=== PATIENT | male | born 1965 | race Caucasian/White ===

== ENCOUNTER 2022-08-25 07:55 | Day surgery (SDC) | payer OTHER, SELFPAY ==
--- NOTE | 2022-08-24 21:46 | W.PM.HP.N ---
Date of service: 08/25/22 Time of Service: 09:01 Assessment and Plan Assessment and plan (1) Screening for colon cancer: Status: Acute Assessment and plan: proceed with screening colonoscopy History of Present Illness History of Present Illness Chief Complaint: Screening colonoscopy Narrative: Assessment & Plan (1) Encounter for screening colonoscopy: Plan Plan: Colonoscopy w/ general & natural airway. The?patient will be scheduled by my office. If there is any concerns of COVID the procedure will be delayed The pt understands that they need to do a bowel prep and the importance of hydration during this.? The patient understands there is a theoretical risk of renal failure.? For healthy patients we use Gatorade/Miralax Prep.? ?For anyone with renal concerns- GoLytely will be used. Plavix and coumadin will need to be held except in unusual circumstances. ? Patients in A. Fib do not need to be bridged with Lovenox or on CVA prophylaxis.? A baby ASA can be continued but full dose ASA needs to be stopped for 10 days prior to the procedure. A complete H & P is required within 30 days of the procedure.? GETA w/natural airway is used for the colonoscopy.? Colonoscopy does not require antibiotics prophylaxis. Continue to take AntiVirals w/ out interruptions? Thank you for allowing me to participate in the care of this Patient.? A copy of the Endoscopy report will be forwarded to your office. Informed consent is obtained for the procedural (explained in simple layman's terms that?the pt and/or family could understand) explaining risks vs benefits and alternatives to the procedure and consequences if we do not do the procedure and need/rational for the procedure. Risks include but are not limited to: bleeding, infection, perforation of colon.? This would necessitate emergency surgery to repair the damage w/ possible ostomy; and other associated complications w/ the required surgery. ? Also complications of anesthesia including aspiration, MA/CVA/. I discussed with the?patient would they could expect during the procedure, post procedure and recovery time and risks.? The patient understands that they need to have a ride home after the procedure.? The patient was given all this information in writing and expressed understanding. to your office.? If there are any questions or concerns please feel free to contact our office.? Patients at highest risk for IE???Prophylaxis is suggested only in the setting of conditions associated with the highest risk of an adverse outcome if IE occurs. These include [[email or web address]]: ?Prosthetic cardiac valve or material ?Presence of cardiac prosthetic valve ?Transcatheter implantation of prosthetic valves ?Cardiac valve repair with devices, including annuloplasty, rings, or clips ?Left ventricular assist devices or implantable heart ?Previous, relapse, or recurrent IE ?Congenital heart disease ?Unrepaired cyanotic congenital heart disease, including palliative shunts and conduits ?Completely repaired congenital heart defect with prosthetic material or device, whether placed by surgery or by transcatheter during the first six months after the procedure ?Repaired congenital heart disease with residual defects at the site of or adjacent to the site of a prosthetic patch or prosthetic device ?Surgical or transcatheter pulmonary artery valve or conduit placement such as Isabel valve and Contegra conduit ?Cardiac transplant recipients who develop cardiac valvulopathy ? ? ? Situation?Agent? Adult?? Dosing? Child Dosing?Adults?Children?Oral?Amoxicillin? 2g po? 50mg/Kg? po?2 g?50 mg/kg?Unable to take oral medication?Ampicillin? 2g IMor IV? 50mg/kg IM or IV?2 g IM or IV?50 mg/kg IM or IV?OR?Cefazolin or ceftriaxone? 1g IM or IV? 50mg/kg IM or IV?1 g IM or IV?50 mg/kg IM or IV?Allergic to penicillin or ampicillin?oral?Cephalexin?2g po? 15mg/kg?2 g?50 mg/kg?OR?Azithromycin or clarithromycin? 500mg?500 mg?15 mg/kg?OR?Doxycycline? 100mg?100 mg?<45 ? kg, 2.2 mg/kg???>45 kg, 100 mg?Allergic to penicillin or ampicillin and unable to take ? oral medication?Cefazolin or?ceftriaxone? 1g IM or?IV?1 g IM or IV?50 mg/kg IM or IV?? ? Antibiotic regimens for prevention of endocarditis prior to dental procedures*Clindamycin is no longer recommended for antibiotic prophylaxis prior to dental ?New polyethylene glycol 3350 ?? take per colonoscopy instructions 238 grams? PO ONCE 238 grams 0RF colonoscopy prep ? ? bisacodyl (Dulcolax (bisacodyl)) ?? take per colonoscopy instructions 5 mg? PO ONCE 4 tabs 0RF colonscopy bowel prep ? ? Plan Detail Instructions: ? ? Colonoscopy (AC) Total time on date of encounter, (wgag-[id number] and non fluc-kt-hhgn) (minutes): 25 Time was spent: reviewing prior notes and diagnostics, providing direct patient care, ordering diagnostics and/or referrals, documenting today's visit, updating the EMR, coordinating care and other HPI Pt here for colonoscopy states he has them every 5 years because he is HIV positive and sexually active. Currently patient is not having any rectal concerns. Pt seen at the request of PCP regarding colon cancer screening. Pt? had a colon cancer screening before.? Denies problems with constipation, diarrhea.? No pain or difficulty with bowel movements.? Denies rectal bleeding.? There is family history of any colon cancer.? Pt has not had any weight loss.? Their appetite is good.? No heart, lung, or kidney problems. No heartburn or indigestion. No prior colo-rectal surgery.? ? No problems with anesthesia in the past.? ? No HPV infections that he is aware- although it is noted in his problem list. Sustiva adn Combivir Dr. Schultz at [facility] ID.? Stable on medications.? Last CE was at [place] 6 yrs ago.? Normal per pt.? ? ?Patient has a history of: DM:? no CVA/MA:? No CPAP use:? no ? Covid- December.? No long-term sequelae Blood thinners:? no Kidney disease:? daily THC use.? no tobacco HIV+? well controlled and normal CD4 counts Patient has had no changes in his medical status or his medications since I saw him last. He has not been in the emergency department for any reason. Patient is doing okay today. He is not having any chest pain or shortness of any of breath. He is not having any fevers or upper respiratory tract symptoms. He did complete prep. The resulting effluent is a clear yellow. He is not having any abdominal pain or nausea. All questions are answered to his satisfaction and he is stable to proceed with colonoscopy today. Review of Systems All systems reviewed & are unremarkable except as noted in HPI and below PFSH All Active Problems Vitamin D deficiency (Acute) Screening for colon cancer (Acute) Medical History Acquired immune deficiency syndrome Family history of colon cancer Maternal Uncle age 54 Hemangioma of liver History of seizures Per pt. states he has not had a seizure since he was 12 years old, stated it was fever related. HIV positive Human papilloma virus Hypercholesterolemia Hypertriglyceridemia Lyme disease (~2014) Pityriasis rosea Plantar fasciitis Pseudogout Pseudogout Surgical History Colonoscopy - MAC (02/12/17) Social History Smoking/Tobacco Use Status: Former Tobacco Use Quit Date: 11/12/15 Smoking risk assessment performed?: Yes Alcohol Intake: current Alcohol Intake frequency: holidays/special occasions only Drug use: Daily Substance use type: marijuana Details: Pt states 3+ joints qd Do you feel safe at home: Yes Do you feel safe in your relationship?: Yes Meds Allergies and Home Medications Allergies Allergy/AdvReac Type Severity Reaction Status Date / Time No Known Allergies Allergy Unverified 08/24/22 08:14 Home Medications Medication Instructions Recorded Confirmed Type atorvastatin 20 mg tablet (Lipitor) 20 mg PO DAILY 12/23/21 08/25/22 History cholecalciferol (vitamin D3) 50 50 mcg PO DAILY 12/23/21 08/25/22 History mcg (2,000 unit) capsule efavirenz 50 mg capsule (Sustiva) 50 mg PO DAILY 12/23/21 08/25/22 History lamivudine 150 mg-zidovudine 300 1 tab PO BID 12/23/21 08/25/22 History mg tablet (Combivir) Exam Narrative Exam Narrative: PHYSICAL EXAM GENERAL APPEARANCE: Alert, healthy appearance, oriented, in no acute distress SKIN: No rashes.? No breakdown HYDRATION: Well hydrated HEAD, EYES, EARS, NECK, THROAT: Head is normocephalic, pupils equal, round, reactive to light and accommodation, ocular movement intact, sclera clear and no jaundice. ?Dentition intact. No sore throat.? No jaw pain. LUNGS: normal respiration/nl chest excursion. ?Clear to auscultation B/l no R/R/W ?HEART: Regular rate and rhythm, EXTREMITY: No edema or cyanosis? no leg pain, redness, swelling.? ABDOMEN: non tender to palpation, no masses or distention, no hernias. Normal bowel sounds NEURO: no focal neuro deficits. Const General: cooperative, healthy appearing and comfortable Orientation: awake and oriented x3 Eyes General: appearance normal, both eyes and all related structures Conjunctivae: conjunctivae normal Sclera: sclerae normal Resp Effort & Inspection: normal respiratory effort and able to speak in complete sentences Auscultation: clear to auscultation bilaterally Cardio Jugular venous pressure: no JVD Rate: regular rate Heart Sounds: S1 normal and S2 normal GI Inspection: non-distended Palpation: soft, no guarding, no hernias and nontender Auscultation: normal bowel sounds Skin General skin exam: normal turgor Neuro General: patient alert, patient awake and patient oriented x3 Cognition: normal cognition Extrem Right lower extremity: no edema Left lower extremity: no edema
--- NOTE | 2022-08-24 21:52 | COLE_ITS ---
Colonoscopy Report Pre-op diagnosis general: +family hx of CRC Surgeon: Tiffanie Boggs Anesthesia Type: General:No Airway Complications: None Disposition: same day Prep: Miralax/Dulcolax Procedure Description: After informed consent was obtained the patient was taken to the procedure room and placed in a left decubitous position. Monitors were applied and a time out was done. The patients name, date of , procedure, allergies to medications and metal in their body was reviewed. The patient was then sedated. Once sedated and comfortable a rectal exam was done. External exam was normal. Internal exam revealed a normal sphincter tone and no palpable masses. The prostate []. The scope was then introduced and retrofelexed. [] internal hemorrhoids were identified. The scope was then advanced to the cecum [] difficulty. The TI and appendiceal orifice were identified. The prep was []. The scope was then slowly retracted over [] minutes back into the rectum. Polyps were removed at []. The scope was removed and the patient was woken up and taken back to Same day surgery in stable condition. The patient tolerated the procedure well and there were no immediate complicat ions. Follow up: The patient should follow up in [] years unless they develop changes in bowel habits or other new gastrointestinal complaints.
--- NOTE | 2022-08-24 21:53 | PDOC.DSDIS_ITS ---
Discharge Plan Disposition Patient Disposition: HOME Condition: Good Discharge Details Attending Provider: Tiffanie Boggs Primary Care Provider: Radha Perales Home Meds and New Rx's Prescriptions: Continued cholecalciferol (vitamin D3) 50 mcg (2,000 unit) capsule 50 mcg PO DAILY atorvastatin [Lipitor] 20 mg tablet 20 mg PO DAILY lamivudine-zidovudine [Combivir] 150-300 mg tablet 1 tab PO BID efavirenz [Sustiva] 50 mg capsule 50 mg PO DAILY Discontinued polyethylene glycol 3350 17 gram/dose powder 238 g PO ONCE Qty: 238 0RF Rx Instructions: take per colonoscopy instructions bisacodyl [Dulcolax (bisacodyl)] 5 mg tablet,delayed release (DR/EC) 5 mg PO ONCE Qty: 4 0RF Rx Instructions: take per colonoscopy instructions Discharge Instructions Additional Instructions: DSU Colonoscopy Post- Op Instructions Instructions for Everyone who is given Anesthesia: For your safety, please do the following for the next twenty-four (24) hours: *Do Not operate a motor vehicle (car, truck, motorcycle, etc.) *Do Not drink alcoholic beverages or use any recreational drugs for the first 24 hours or while taking pain medications. The medications in your body may have a reaction that can be dangerous. *Do Not make any important decisions or sign any important papers. Findings: Follow up: 1. No lifting over 20 pounds or strenuous activity for the first 24 hours after your procedure. After 24 hours there are no restrictions on your activity but you may feel fatigued for a few days. 2. After you arrive home you may have a light meal and return to your normal diet as you can tolerate it without feeling sick to your stomach. 3. You may have a bloated, gaseous feeling in your belly (abdomen) after a colonoscopy. Passing gas and belching will help. Walking or lying down on your left side with your knees flexed may relieve the discomfort. Call the office at [phone] (Office) or [phone] (Hospital) right away if you notice any of the following: a.Vomiting of blood or ?coffee ground stools?. b.Rectal bleeding 1Tbsp, blood clots or continuous bleeding. c.Severe belly (abdominal) pain. d.A hard distended belly (abdomen) and an inability to pass gas. 4. Please don?t expect to have a normal BM (bowel movement) for 2-3 days after your procedure. 5. If there are questions regarding the findings of your procedure, please contact your doctor 6. If you are unable to contact your doctor with a problem, contact the hospital at [phone]. 7. Continue all your regular medications unless directed otherwise. I understand the above instructions and have no questions. Signature of Patient or Adult Escort Name of Responsible Adult Escort Signature of Nurse Date/Time Activity:: see above Diet:: see above Discharge Orders Discharge Orders: Discharge Order (Routine); Ordered 08/24/22 Ordered By: Tiffanie Boggs DS: Diagnosis Discharge Diagnosis (1) Acquired immune deficiency syndrome: (2) Family history of colon cancer: (3) Hypercholesterolemia: (4) Hypertriglyceridemia: (5) Pseudogout:
--- NOTE | 2022-08-25 06:24 | ANES.PREOP_ITS ---
General Info Date of Service Date Performed: 08/25/22 Height: 5 ft 7 in Weight: 64.864 kg Body Mass Index (BMI): 22.4 Surgical Procedure: Operation Date: 08/25/22 09:05 Proposed Procedure Side Surgeon zohreh Boggs, DO Meds Allergies and Home Medications Allergies Allergy/AdvReac Type Severity Reaction Status Date / Time No Known Allergies Allergy Unverified 08/24/22 08:14 Home Medication Medication Instructions Recorded atorvastatin 20 mg tablet (Lipitor) 20 mg PO DAILY 12/23/21 cholecalciferol (vitamin D3) 50 50 mcg PO DAILY 12/23/21 mcg (2,000 unit) capsule efavirenz 50 mg capsule (Sustiva) 50 mg PO DAILY 12/23/21 lamivudine 150 mg-zidovudine 300 1 tab PO BID 12/23/21 mg tablet (Combivir) Current Visit Medications: Current Medications Generic Name Dose Route Start Last Admin Trade Name Freq PRN Reason Stop Dose Admin Hyoscyamine Sulfate 0.125 mg 08/24/22 21:45 Hyoscyamine 0.125 Mg Sl/Oral/Chew SL DIRECTED PRN Ringer's Solution 1,000 mls @ 80 mls/hr 08/25/22 06:00 IV 08/25/22 23:59 INFUSION [facility] IV Miscellaneous Supplies 1 each 08/25/22 06:00 Iv Access IV 08/25/22 23:59 DIRECTED KATIE Ondansetron HCl 4 mg 08/24/22 21:45 Ondansetron 4 Mg/2 Ml Vial IVP Q4H PRN PRN Nausea / Vomiting Sodium Chloride 0 ml 08/25/22 06:00 Normal Saline Flush 10 Ml Syr IV 08/25/22 23:59 PRN PRN Sodium Chloride 0 ml 08/25/22 06:00 Normal Saline 10 Ml Vial IJ 08/25/22 23:59 DIRECTED PRN Sterile Water 0 ml 08/25/22 06:00 Water,Injection,Sterile 10 Ml Vial IJ 08/25/22 23:59 DIRECTED PRN PFSH Active Problems Active Problems: Problem Status Onset Code Vitamin D deficiency E55.9 Screening for colon cancer Z12.11 Medical History Medical History (Updated 08/25/22 @ 08:03 by Yumiko Bueno RN) Acquired immune deficiency syndrome Family history of colon cancer Maternal Uncle age 54 Hemangioma of liver History of seizures Per pt. states he has not had a seizure since he was 12 years old, stated it was fever related. HIV positive Human papilloma virus Hypercholesterolemia Hypertriglyceridemia Lyme disease (~2014) Pityriasis rosea Plantar fasciitis Pseudogout Pseudogout Surgical History Surgical History Colonoscopy - MAC (02/12/17) Tobacco Smoking/Tobacco Use Status: Former Tobacco Use Alcohol Alcohol Intake: current Alcohol intake frequency: holidays/special occasions only Substance Use Substance use: Daily Substance use type: marijuana Vital Signs and Lab Results Vital Signs Most Recent Vital Signs in EMR: Temp Pulse Resp BP Pulse Ox 36.5 C 70 18 135/87 97 08/25/22 08:07 08/25/22 08:07 08/25/22 08:07 08/25/22 08:07 08/25/22 08:07 Lab Results Blood Type / Crossmatch: No Data to Display Complete Blood Count: No Data to Display Complete Metabolic Panel: No Data to Display Liver Function Panel: No Data to Display Coagulation Panel: No Data to Display Cardiac Panel: No Data to Display Arterial Blood Gas: No Data to Display Venous Blood Gas: No Data to Display Pancreas Panel: No Data to Display Thyroid Panel: No Data to Display Infectious Disease: No Data to Display Blood Cultures: No Data to Display Toxicology Panel: No Data to Display Anesthesia Assessment and Plan Anesthesia History Personal History: No History of Anesthesia Complications Family History: No Family History of Anesthesia Complications Exercise Tolerance Exercise Tolerance: Metabolic Equivalents>4 Cardiac & Pulmonary Exam Cardiac Exam: Normal S1/S2 Heart Sounds Pulmonary Exam: Clear Bilateral Breath Sounds Implantable Cardiac Device Does patient have a Pacemaker or an ICD?: No Airway Exam Known Difficult Airway: No Mallampati Class: 2 Mouth Opening: Normal (> 3cm) Thyromental Distance: Greater than 3 cm Neck Range of Motion: Full ROM Neck Circumference: Normal Teeth Condition: Normal Dentition ASA Classification ASA Score: ASA 2 Emergency Case?: No NPO Status NPO Status: NPO Clears >2 hours, Solids >8 hours Anesthesia Plan Resuscitation Status: Full Code Anesthesia Technique: General Anesthesia Airway Planned: Natural Airway Monitors Used: Standard Monitors Preoperative Comments:: 57 yo male with family history of colon CA for colo. Sig PMHx: hep b (), sz as a child, HIV (efavirenz, lamivudine-zidovudine), former smoker, occ EtOH, daily cannabis.
[2022-08-25 08:07] VITALS: BP 135/87; PULSE 70; RESP 18; TEMP 36.5; O2SAT 97
[2022-08-25] MEDS: Lactated Ringers 1,000 ML 80 ML IV (08:32)
[2022-08-25 08:34] VITALS: BMI 22.4
--- NOTE | 2022-08-25 09:03 | PDOC.DSDIS_ITS ---
Discharge Plan Disposition Patient Disposition: HOME Condition: Good Discharge Details Reason For Visit: screening colonoscopy Attending Provider: Ponce Fuentes Primary Care Provider: Radha Perales Home Meds and New Rx's Prescriptions: Continued cholecalciferol (vitamin D3) 50 mcg (2,000 unit) capsule 50 mcg PO DAILY atorvastatin [Lipitor] 20 mg tablet 20 mg PO DAILY lamivudine-zidovudine [Combivir] 150-300 mg tablet 1 tab PO BID efavirenz [Sustiva] 50 mg capsule 50 mg PO DAILY Discontinued polyethylene glycol 3350 17 gram/dose powder 238 g PO ONCE Qty: 238 0RF Rx Instructions: take per colonoscopy instructions bisacodyl [Dulcolax (bisacodyl)] 5 mg tablet,delayed release (DR/EC) 5 mg PO ONCE Qty: 4 0RF Rx Instructions: take per colonoscopy instructions Discharge Instructions Additional Instructions: DSU Colonoscopy Post- Op Instructions Instructions for Everyone who is given Anesthesia: For your safety, please do the following for the next twenty-four (24) hours: *Do Not operate a motor vehicle (car, truck, motorcycle, etc.) *Do Not drink alcoholic beverages or use any recreational drugs for the first 24 hours or while taking pain medications. The medications in your body may have a reaction that can be dangerous. *Do Not make any important decisions or sign any important papers. Findings: Follow up: 1. No lifting over 20 pounds or strenuous activity for the first 24 hours after your procedure. After 24 hours there are no restrictions on your activity but you may feel fatigued for a few days. 2. After you arrive home you may have a light meal and return to your normal di et as you can tolerate it without feeling sick to your stomach. 3. You may have a bloated, gaseous feeling in your belly (abdomen) after a colonoscopy. Passing gas and belching will help. Walking or lying down on your left side with your knees flexed may relieve the discomfort. Call the office at [phone] (Office) or [phone] (Hospital) right away if you notice any of the following: a.Vomiting of blood or ?coffee ground stools?. b.Rectal bleeding 1Tbsp, blood clots or continuous bleeding. c.Severe belly (abdominal) pain. d.A hard distended belly (abdomen) and an inability to pass gas. 4. Please don?t expect to have a normal BM (bowel movement) for 2-3 days after your procedure. 5. If there are questions regarding the findings of your procedure, please contact your doctor 6. If you are unable to contact your doctor with a problem, contact the hospital at [phone]. 7. Continue all your regular medications unless directed otherwise. I understand the above instructions and have no questions. Signature of Patient or Adult Escort Name of Responsible Adult Escort Signature of Nurse Date/Time Activity:: see above Diet:: see above Discharge Orders Discharge Orders: Discharge Order (Routine); Ordered 08/24/22 Ordered By: Tiffanie Boggs DS: Diagnosis Discharge Diagnosis (1) Screening for colon cancer: Status: Acute Asessment and Plan: Diverticulosis -Consume a high-fiber well balanced diet with good hydration Screening colonoscopy was negative for colorectal cancer or polyps -Recommend follow-up in 5 to 10 years
--- NOTE | 2022-08-25 09:04 | W.COLOREPORT ---
Colonoscopy Report Date of procedure: 08/25/22 Pre-op diagnosis general: Screening colonoscopy Post-op diagnosis procedure note: other (Diverticulosis) Procedure: Screening colonoscopy Surgeon: Ponce Fuentes Anesthesia Type: General:No Airway Estimated blood loss (mL): 0 Pathology: none sent Complications: None Disposition: same day Indications: Yaya 57-year-old male here for screening colonoscopy Prep: Miralax/Dulcolax Procedure Start Time: 09:18 Procedure End Time: 09:31 Retraction Time: 10 Procedure Description: After the induction of monitored anesthetic care, and with the patient in left lateral decubitus position, I began by performing an external anorectal exam.? Perineum and skin were normal, as was the anal verge.? There was no evidence of external hemorrhoids.? Next, I performed a digital rectal exam.? I did not appreciate any abnormal findings.? Next, I advanced a colonoscope into the rectal vault.? I performed retroflexion.? I did not see signs of pathologic internal hemorrhoids.? Using insufflation, I then advanced the colonoscope beyond the rectal folds and into the sigmoid colon before advancing towards the cecum.? The quality of the prep was adequate.? The scope was noted to be in the cecum by identification of the ileocecal valve and appendiceal orifice.? I then began withdrawing the colonoscope using repeated irrigation as necessary for full evaluation of the colonic mucosa. There was some very mild sigmoid diverticulosis. ?Once the scope was withdrawn to the level of the rectum, great care was taken to examine portions of the rectal folds.? Finally, the scope was withdrawn and the patient was brought to the same-day surgery recovery unit as the anesthetic wore off. ?The findings and instructions were shared with the patient prior to discharge.
[2022-08-25 09:45] VITALS: BP 114/88; PULSE 69; RESP 18; TEMP 36.5; O2SAT 95
--- NOTE | 2022-08-25 10:04 | W.ANESPOSTOP ---
Postoperative Evaluation Date, Time and Location Date Performed: 08/25/22 Time Performed: 10:04 Patient Location: Day Surgery Unit Vital Signs Most Recent Imported Vital Signs: Most Recent Vital Signs Temp Pulse Resp BP Pulse Ox 36.5 C 69 18 114/88 95 08/25/22 09:45 08/25/22 09:45 08/25/22 09:45 08/25/22 09:45 08/25/22 09:45 Pain Score Most Recent Pain Score: Most Recent Pain Score Pain Level 0 08/25/22 09:45 Assessment Mental Status: Awake (Alert & Oriented to Patient Baseline) Airway and Respiratory Function: Patent airway with normal (patient baseline) respiratory exam Cardiovascular Function: Hemodynamically Stable Hydration Status: Adequately Hydrated Nausea & Vomiting: No Nausea or Vomiting Pain: Pt. Denies Any Pain Peripheral Nerve Block: Patient did not receive a nerve block
[2022-08-25 10:06] VITALS: BP 136/94; PULSE 67; RESP 18; TEMP 36.6; O2SAT 98
== END 2022-08-25 10:40 | disposition home or self-care (01) ==
PROVIDERS: PCP Physician Assistant Medical; Visit Provider Surgery
PROC: 0DJD8ZZ Inspection of Lower Intestinal Tract, Via Natural or Artificial Opening Endoscopic (ICD-10-PCS; CPT 45378; principal; 2022-08-25 09:00)
DX: Z12.11 Encounter for screening for malignant neoplasm of colon (principal); K57.30 Diverticulosis of large intestine without perforation or abscess without bleeding
CPT/HCPCS: 45378